=== PATIENT | female | born 1935 | race Caucasian/White ===

== ENCOUNTER → 2016-09-03 | Outpatient (CLI) | payer MEDICARE ==
[~2016-09-03] MED LIST: CETI10CA8 PO; LACT1CAP33 PO; THYR325T PO; [UNRECOGNIZED DRUG - OTHER] PO
== END | disposition home or self-care (01) ==
LOC: STAR 10:05
DX: Z01.810 Encounter for preprocedural cardiovascular examination (principal); R00.2 Palpitations
CPT/HCPCS: 93005

== ENCOUNTER 2018-06-23 09:01 | Outpatient (CLI) | payer MEDICARE ==
[~2018-06-23 09:01] MED LIST changes: +ACIDOPHILUS PROB1 MG PO; -LACT1CAP33 PO
== END 2018-06-23 23:59 | disposition home or self-care (01) ==
LOC: EDBD 09:01 → RAD 09:01
PROVIDERS: ATTEND Family Medicine
DX: M48.54XA Collapsed vertebra, not elsewhere classified, thoracic region, initial encounter for fracture (principal); M48.55XA Collapsed vertebra, not elsewhere classified, thoracolumbar region, initial encounter for fracture; M47.814 Spondylosis without myelopathy or radiculopathy, thoracic region; M48.04 Spinal stenosis, thoracic region
CPT/HCPCS: 72072

== ENCOUNTER → 2020-03-07 | Outpatient (CLI) | payer MEDICARE | END | disposition home or self-care (01) | LOC: RAD 11:04 | PROVIDERS: ATTEND Family Medicine | DX: M16.11 Unilateral primary osteoarthritis, right hip (principal) ==